=== PATIENT | female | born 1985 | race Caucasian/White ===

== ENCOUNTER 2016-12-09 12:08 | Emergency (ER) | payer OTHER ==
[~2016-12-09] VITALS: Ht 165.1 cm; Wt 54.0 kg
[~2016-12-09 12:08] MED LIST: BACT800T5 PO; ZOFR4TAB3 SL
[2016-12-09 13:27] VITALS: BP 120/70; PULSE 71; RESP 16; TEMP 97.8; O2SAT 99
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
== END 2016-12-09 14:44 | disposition home or self-care (01) ==
LOC: NED 12:08 → NEPK 14:44
DX: S20.212A Contusion of left front wall of thorax, initial encounter (principal); V49.40XA Driver injured in collision with unspecified motor vehicles in traffic accident, initial encounter; Z79.899 Other long term (current) drug therapy; Z88.1 Allergy status to other antibiotic agents
CPT/HCPCS: 71101; 84703; 99283